=== PATIENT | female | born 1945 | race Caucasian/White ===

== ENCOUNTER 2016-08-27 11:53 | Emergency (ER) | payer MEDICARE ==
[~2016-08-27] VITALS: Ht 175.3 cm; Wt 114.5 kg
[~2016-08-27 11:53] MED LIST: AZEL23SP NS; CALC1TAB PO; FEXO-43 PO; FLUT16SP NS; GLUC100016 PO; LACT1CAP44 PO; LEVO125T6 PO; METF500T4 PO; MULT-1018 PO; OMEG500C3 PO; RANI150C4 PO
[2016-08-27 11:54] VITALS: BP 138/89; PULSE 91; RESP 16; O2SAT 98
[2016-08-27] MEDS ORDERED: OMEP20CA11 PO (11:59)
--- NOTE | 2016-08-27 12:03 | ED.REPORT ---
HPI-Abd Pain F 40 and Over Date of Service Aug 27, 2016 ED Provider: Brittney Sharif MD Patient is a 70 year old female with a history of diabetes and acid indigestion presenting to the ED complaining of abdominal pain and nausea onset last night. The patient describes the pain as a burning in her upper abdominal region across both sides and radiating into her chest and occasionally shoulders. The chest pain is described as a "pressure" and feels different than her acid indigestion. She has never experienced this type of pain before and rates the pain between a 5/10 and 8/10. The pain is exacerbated by motion and relieved by rest, but is not positional or pleuritic. The patient also admits to being fatigued for the past two months but denies shortness of breath, diaphoresis, weakness, changes in extremity function, dizziness, bloody stool, or diarrhea, as well as any recent illness. The patient also denies any cardiac history. She did have cardiac testing done two years ago to check for a murmur, but the results were normal. The pt reports that her blood sugar has been abnormal for the last two months but she is trying to improve this. Nursing Notes Stated Complaint: CHEST PAIN Chief Complaint: Female Abdominal Pain Nursing Notes Reviewed: Yes Allergies: Coded Allergies: No Known Drug Allergies (Verified Allergy, Unknown, 08/27/16) Scheduled Fluticasone Propionate (Fluticasone Propionate Nasal) 16 Gm Beatty.susp 1 SPRAY NS DAILY Levothyroxine (Levothyroxine) 125 Mcg Tablet 125 MCG PO DAILY Metformin (Metformin) 500 Mg Tablet 500 MG PO BIDWM Multivitamin (Multi Vitamin Daily) 1 Each Tablet 1 EACH PO DAILY Omeprazole (Omeprazole) 20 Mg Capsule.dr 20 MG PO BID Miscellaneous Medications Azelastine/Fluticasone (Dymista Nasal Beatty) 23 Gm Beatty.pump 23 GM NS Calcium Carbonate/Vitamin D3 (Caltrate 600 + D Tablet) 1 Each Tablet 1 EACH PO Fexofenadine (Aller-Fex) 180 Mg Tablet 180 MG PO Glucosamine Sulfate 2Kcl (Glucosamine) 1,000 Mg Tablet 1,000 MG PO Lactobacillus Acidophilus (Acidophilus Lactobacillus) 1 Each Capsule 1 EACH PO [place]-3 Fatty Acids (Fish Oil) 500 Mg Capsule 1,200 MG PO General Time Seen by MD: 12:02 Chief Complaint Abdominal pain Hx Obtained From: Patient Arrived By: Walk-in Sudden in Onset?: Yes Onset Occurred: 1 day ago Symptom Duration: Since onset Radiation: : Back Severity: Current: Pain level 5 out of 10 Severity: Maximum: Pain level 8 out of 10 Recent Healthcare: No recent hospitalization, Recent doctor visit Similar Sx Previous: No Past Medical History Past Medical History gastrointestinal disorders acid indigestion Reports: Diabetes mellitus, GERD Past Surgical History Lap heal right knee Reports: Tonsillectomy Social History Alcohol Use: "Social" Other Social History: Ambulatory Status Independent Review of Systems denies black stool denies changes in extremity function bilateral shoulder pain, radiating from abdomen Constitutional: Reports: Fatigue, Denies: Weakness - generalized Respiratory: Denies: Non-productive cough, Pleuritic pain, Shortness of breath Cardiovascular: Reports: Chest pain GI: Reports: Abdominal pain, Nausea, Denies: Diarrhea Complete sys rev & neg: except as marked. Skin: Denies Diaphoresis Neurologic: Denies: Dizziness, Weakness Physical Exam Vital Signs Vital Signs (First) Date Time Temp Pulse Resp B/P Pulse Ox O2 Delivery O2 Flow Rate FiO2 08/27/16 11:54 36.7 91 16 138/89 98 Room Air Initial VS: Reviewed, Vital signs normal General/Constitutional: Awake, Alert, No acute distress Respiratory / Chest: Atraumatic, Breath sounds NL, Breath sounds = bilat, No respiratory distress Cardiovascular: Heart rate NL, Regular rhythm, Heart sounds NL Abdomen: Atraumatic, Soft, No guarding, No rebound Generalized upper abdominal tenderness, worse in the epigastrium Back: Atraumatic, Full range of motion Head / Eyes: Atraumatic, Normocephalic, PERRL, EOMI ENT: Atraumatic, Airway patent, Mucous membranes moist Skin: Atraumatic, Color NL, No rash, Warm, Dry Neurologic: Oriented X3, Speech NL, No motor deficits, No sensory deficits Neck: Atraumatic, Supple, Full range of motion Upper Extremity / MS: Atraumatic, Full range of motion Lower Extremity / Pelvis / MS: Atraumatic, Full range of motion Psychiatric: Affect NL, Mood NL Interpretation & Diagnostics Lab Results Interpretation Result Diagram: 08/27/16 1245 08/27/16 1245 Test 08/27/16 12:45 08/27/16 14:50 White Blood Count 7.4th/mm3 (3.8-10.1) Red Blood Count 4.47mil/mm3 (3.90-5.20) Hemoglobin 11.3g/dL (12.0-15.6) Hematocrit 36.3% (35.0-46.0) Mean Corpuscular Volume 81.2fL (81-100) Mean Corpuscular Hemoglobin 25.3pg (27.0-35.0) Mean Corpuscular Hemoglobin Concent 31.1% (32.0-37.0) Red Cell Distribution Width 15.5% (12.3-15.4) Platelet Count 301bil/L (150-400) Neutrophils (%) (Auto) 53.8% (40-74) Lymphocytes (%) (Auto) 32.2% (14-46) Monocytes (%) (Auto) 10.1% (4-12) Eosinophils (%) (Auto) 3.0% (0-5) Basophils (%) (Auto) 0.5% (0-3) Sodium Level 142mEq/L (134-144) Potassium Level 3.6mEq/L (3.5-5.2) Chloride Level 109mEq/L (97-108) Carbon Dioxide Level 19mmol/L (18-29) Blood Urea Nitrogen 12mg/dL (8-27) Creatinine 0.45mg/dL (0.57-1.00) Estimat Glomerular Filtration Rate 198mL/min (>59) Glucose Level 144mg/dL (60-99) Calcium Level 7.5mg/dL (8.5-10.1) Magnesium Level 1.5mg/dL (1.6-2.6) Total Bilirubin 0.3mg/dL (0.0-1.2) Aspartate Amino Transf (AST/SGOT) 27U/L (0-50) Alanine Aminotransferase (ALT/SGPT) 21U/L (0-32) Alkaline Phosphatase 58U/L (25-165) Total Protein 5.7g/dL (6.4-8.4) Albumin 3.2g/dL (3.4-5.0) Lipase 20U/L (13-60) Hold Salazar Top Tube Received (Received) Troponin T < 0.010ug/L (0.0-0.011) ECG Interpretation Time: 12:41 Interpreted by: ED physician Normal ECG Interpretation: Normal rate (69), Normal sinus rhythm X-Ray Chest Interpretation Chest Xray Interpretation: IMPRESSION: No acute cardiopulmonary disease. Dictated by: Harvey Rivero M.D. on 08/27/2016 at 12:30 Approved by: Harvey Rivero M.D. on 08/27/2016 at 12:30 Interpretation / Wet Read by: Interpret - Radiologist Re-Eval/Medical Decision Med Decision/Clinical Course Patient is only epigastric pain, her symptoms resolved while here. A partial list of differential diagnoses considered were acute coronary syndrome, pancreatitis, cholecystitis, peptic ulcer disease, reflux, obstruction, and gastroenteritis. The patient was essentially ruled out for PR symptoms and negative troponin 2 normal EKG. No other abnormalities were found on her lab where she was discharged in improved condition. Source of Hx: Old records Re-Evaluation/Progress : Time of Eval: 16:02 Patient Status: Condition improved Re-Evaluation/Progress Note: Pt rechecked, who is resting comfortably. The diagnosis and plan for discharge are discussed. The pt understands and agrees with the plan. All questions are addressed at this time. Consultation : Referral / Consult Name: Slava Arora MD Consulted With: Surgeon Call Returned at: 15:57 Paving Machine Operator: Agrees with eval, Agrees with plan Note: Consulted with Dr. Arora, surgeon, regarding pt's case. Dr. Arora agrees with the evaluation and plan. Counseled Regarding: Diagnosis, Lab results, Need for follow-up, When/why to return to ED Discharge & Departure Primary Impression: Abdominal pain Abdominal location: upper abdomen Qualified Code: R10.10 - Upper abdominal pain, unspecified Disposition: Home Discharge Condition All VS Reviewed: Yes Condition: Stable Patient Instructions: Acute Abdominal Pain (ED) Additional Instructions: Follow up with your primary care physician in one week for further evaluation. You do not have evidence of heart attack, gallbladder issues or obstruction. Return to the emergency department if any new or worsening symptoms develop. Referrals: Nathaniel Garza MD (PCP) Scribe Attestation Portions of this note were transcribed by Calli Keith and Lionel Foy. I, Dr. Sharif personally performed the history, physical exam and medical decision- making; I reviewed and confirmed the accuracy of the information in the transcribed note. Signed by: Calli Keith and Gisela Sotomayor, 08/27/16 and 1707. copies to: Nathaniel Garza MD, Jena M MD Aug 27, 2016 12:03 Laurie Keith Aug 27, 2016 12:24 LIONEL FOY Aug 27, 2016 13:43
[2016-08-27] MEDS ORDERED: 0.9% Sodium Chloride 1,000 ML IV ONE (12:17)
[2016-08-27] MEDS ORDERED: LidocaineVisc 2%:Antacid 1:1 10 mL Syringe PO ONE (12:20)
--- NOTE | 2016-08-27 12:31 | DRSVH ---
PROCEDURE: X-RAY CHEST ONE VIEW, PORTABLE ([id number]) INDICATIONS: 70-year-old female with chest pain. TECHNIQUE: One view of the chest was acquired. COMPARISON: None. FINDINGS: Surgical changes and devices: None. Lungs and pleura: No pleural effusions or pneumothorax. Lungs are clear. Mediastinum: Mediastinal contours appear normal. Heart size is normal. Bones and chest wall: No suspicious bony lesions. Overlying soft tissues appear unremarkable. IMPRESSION: No acute cardiopulmonary disease. Dictated by: Harvey Rivero M.D. on 08/27/2016 at 12:30 Approved by: Harvey Rivero M.D. on 08/27/2016 at 12:30
[2016-08-27 13:04] LABS: BASOPHILS % (AUTO) 0.5 % (0-3); MONOCYTES % (AUTO) 10.1 % (4-12); Mean Corpuscular Hemoglobin 25.3 pg (27.0-35.0); Mean Corpuscular Volume 81.2 fL (81-100); NEUTROPHILS % (AUTO) 53.8 % (40-74); Platelet Count 301 bil/L (150-400)
[2016-08-27 13:27] LABS: TROPONIN T < 0.010 ug/L (0.0-0.011)
[2016-08-27 13:37] LABS: Lipase 20 U/L (13-60); Magnesium 1.5 mg/dL (1.6-2.6)
[2016-08-27] MEDS ORDERED: Magnesium Sulf 2 Gm/50mL Water 2 GM in IV Premix 1 EACH IV ONE (14:35)
[2016-08-27 16:48] VITALS: BP 141/65; PULSE 73; RESP 18; O2SAT 95
== END 2016-08-27 16:50 | disposition home or self-care (01) ==
LOC: SED 11:53
DX: R10.10 Upper abdominal pain, unspecified (principal); E11.9 Type 2 diabetes mellitus without complications; K21.9 Gastro-esophageal reflux disease without esophagitis; Z79.84 Long term (current) use of oral hypoglycemic drugs; Z79.899 Other long term (current) drug therapy
CPT/HCPCS: 36415; 71010; 80053; 83690; 83735; 84484; 85025; 93005; 96361; 96374; 99285; G0463; J7030